=== PATIENT | female | born 1950 | race Caucasian/White ===

== ENCOUNTER 2018-02-16 11:38 | Observation (INO) ==
[2018-02-16] MEDS ORDERED: DIAZEPAM 5 MG TABLET PO ONE (12:39)
[2018-02-16] MEDS ORDERED: DIAZEPAM 5 MG TABLET ONE (12:57)
[2018-02-16] MEDS ORDERED: MORPHINE 4 MG/1 ML VIAL IV PRN (14:17)
[2018-02-16] MEDS ORDERED: diphenhydrAMINE CAP 25 MG CAPSULE PO PRN (18:02)
[2018-02-16] MEDS: amLODIPine 10 MG TABLET PO SCH (21:30)
[2018-02-17 05:29] LABS: Basophils % 0.5 % (0.0-0.8); Eosinophils # 0.1 10*3/uL (0.0-0.87); Eosinophils % 2.2 % (0.00-10.9); Hematocrit 36.3 VOL% (35.7-47.0); Hemoglobin 11.7 GM/DL (12.0-16.0); Immature Granulocytes % 0.3 %; Immature Granulocytes Absolute 0.02 #; Lymphocytes # 2.2 10*3/uL (1.4-4.0); Lymphocytes % 36.8 % (21.3-54.2); Mean Corpuscular HGB Conc 32.2 GM/DL (32-36); Mean Corpuscular Hemoglobin 32 PG (27-34); Mean Corpuscular Volume 97.6 FL (87-102); Mean Platelet Volume 10.7 FL (9.6-12.0); Monocytes # 0.7 10*3/uL (0.11-0.8); Monocytes % 12.3 % (1.7-12.7); Neutrophils # 2.9 10*3/uL (1.4-7.4); Neutrophils % 47.9 % (38.7-73.9); Platelet Count 212 T/CUMM (130-400); Red Blood Count 3.72 MC/CUMM (3.8-5.5); Red Cell Distribution Width 13.8 % (9.3-17.3)
[2018-02-17 05:47] LABS: Calcium 8.8 MG/DL (8.5-10.1); Osmolality,Calculated 280.4 MOS/KG (273-304)
[2018-02-17] MEDS: amLODIPine 10 MG TABLET PO SCH (20:50)
[2018-02-18 03:17] LABS: Basophils % 0.6 % (0.0-0.8); Eosinophils # 0.2 10*3/uL (0.0-0.87); Eosinophils % 3.4 % (0.00-10.9); Hemoglobin 11.9 GM/DL (12.0-16.0); Immature Granulocytes % 0.3 %; Immature Granulocytes Absolute 0.02 #; Lymphocytes # 2.2 10*3/uL (1.4-4.0); Lymphocytes % 31.5 % (21.3-54.2); Mean Corpuscular HGB Conc 32.2 GM/DL (32-36); Mean Corpuscular Hemoglobin 31 PG (27-34); Mean Corpuscular Volume 97.6 FL (87-102); Mean Platelet Volume 10.6 FL (9.6-12.0); Monocytes # 0.8 10*3/uL (0.11-0.8); Monocytes % 11.7 % (1.7-12.7); Neutrophils # 3.6 10*3/uL (1.4-7.4); Neutrophils % 52.5 % (38.7-73.9); Platelet Count 226 T/CUMM (130-400); Red Blood Count 3.79 MC/CUMM (3.8-5.5); Red Cell Distribution Width 13.6 % (9.3-17.3); White Blood Count 6.9 T/CUMM (4-12)
[2018-02-18 03:43] LABS: Calcium 9.1 MG/DL (8.5-10.1); Osmolality,Calculated 284.1 MOS/KG (273-304); Potassium 4.2 MMOL/L (3.5-5.1)
[2018-02-18 12:34] VITALS: BP 150/70
== END 2018-02-18 12:30 | disposition home or self-care (01) ==
LOC: N.4E 11:38 → N.RAD 11:38
PROVIDERS: ADMIT Radiology Diagnostic Radiology; ATTEND Radiology Diagnostic Radiology

== ENCOUNTER 2022-01-21 14:40 | Inpatient (IN) ==
[2022-01-21] MEDS ORDERED: ALBUTEROL 2.5 MG/3 ML NEB RESP TX PRN (16:10)
[2022-01-21 16:13] LABS: Basophils % 0.4 % (0.0-0.8); Eosinophils # 0.1 10*3/uL (0.0-0.87); Eosinophils % 0.5 % (0.00-10.9); Hematocrit 33.6 VOL% (35.7-47.0); Hemoglobin 10.6 GM/DL (12.0-16.0); Immature Granulocytes Absolute 0.09 #; Lymphocytes # 0.8 10*3/uL (1.4-4.0); Lymphocytes % 8.4 % (21.3-54.2); Mean Corpuscular HGB Conc 31.5 GM/DL (32-36); Mean Corpuscular Volume 90.1 FL (87-102); Mean Platelet Volume 9.1 FL (9.6-12.0); Neutrophils % 85.7 % (38.7-73.9); Platelet Count 445 T/CUMM (130-400); Red Blood Count 3.73 MC/CUMM (3.8-5.5); Red Cell Distribution Width 14.2 % (9.3-17.3); White Blood Count 9.3 T/CUMM (4-12)
[2022-01-21 16:44] LABS: Calcium 9.1 MG/DL (8.5-10.1); Osmolality,Calculated 261.8 MOS/KG (273-304)
[2022-01-21] MEDS ORDERED: MECLIZINE 25 MG TABLET PO PRN (17:04)
[2022-01-21] MEDS ORDERED: diphenhydrAMINE CAP 25 MG CAPSULE PO PRN (17:04)
[2022-01-21] MEDS ORDERED: LACTATED RINGERS 1,000 ML IV SCH (17:30)
[2022-01-21] MEDS ORDERED: OPTH BOTH EYES SCH (18:30)
[2022-01-21] MEDS ORDERED: ATROPINE 1% BOTH EYES SCH (18:30)
[2022-01-21] MEDS: CHLORHEXIDINE 0.12% ORAL RINSE 60 ML BOTTLE SWISH/SPIT SCH (18:52)
[2022-01-21 20:49] VITALS: BP 150/52
[2022-01-21] MEDS: OPTH BOTH EYES SCH (20:54)
[2022-01-21] MEDS: DORZOLAMIDE 2% BOTH EYES SCH (20:54)
[2022-01-21] MEDS ORDERED: amLODIPine 10 MG TABLET PO SCH (21:00)
[2022-01-22] MEDS: CHLORHEXIDINE 0.12% ORAL RINSE 60 ML BOTTLE SWISH/SPIT SCH ×2 (00:17→06:47)
[2022-01-22] MEDS ORDERED: CHLORTHALIDONE 25 MG TABLET PO SCH (09:00)
[2022-01-22] MEDS ORDERED: ASPIRIN EC 325 MG TABLET PO SCH (09:00)
[2022-01-22] MEDS: DORZOLAMIDE 2% BOTH EYES SCH (09:35)
[2022-01-22] MEDS: OPTH BOTH EYES SCH (09:35)
== END 2022-01-22 11:00 | disposition home or self-care (01) | DRG 916 ==
LOC: N.ED 14:40 → N.EDINP 16:10 → N.ICU 19:31
PROVIDERS: ADMIT Internal Medicine; ATTEND Internal Medicine